=== PATIENT | female | born 1950 | race Caucasian/White ===

== ENCOUNTER 2022-07-28 18:47 | Observation (INO) ==
[2022-07-28] MEDS ORDERED: Naloxone 0.4 MG/ML INJ IVP PRN (22:36)
[2022-07-28] MEDS ORDERED: Melatonin 3 MG TABLET PO PRN (22:36)
[2022-07-28] MEDS ORDERED: Ondansetron ODT 4 MG TAB.RAPDIS SL PRN (22:36)
[2022-07-28] MEDS ORDERED: *HR* Dextrose 50 % in Water (Syg) 50 ML SYRINGE IVP PRN (22:39)
[2022-07-28] MEDS ORDERED: Dextrose Gel 15 GM/37.5 ML TUBE PO PRN ×2 (22:39)
[2022-07-28] MEDS ORDERED: D5% in Water 1,000 ML IVC PRN (22:39)
[2022-07-28] MEDS ORDERED: tiZANidine 4 MG TABLET PO PRN (23:41)
[2022-07-28] MEDS ORDERED: Ringers Solution, Lactated 1,000 ML IVC SCH (23:45)
[2022-07-29] MEDS: cefTRIAXone 1,000 MG in 0.9 % Sodium Chloride Mini Bag 100 ML IVPB SCH ×2 (00:12→09:54)
[2022-07-29] MEDS: Insulin LISPRO 300 UNITS/3 ML VIAL SUBQ SCH ×2 (00:13→05:35)
[2022-07-29] MEDS: Gabapentin 100 MG CAPSULE PO SCH ×4 (00:13→20:58)
[2022-07-29 04:35] LABS: Basophils # 0.1 K/mcL (0.0-0.2); Basophils % 1.1 %; Eosinophils # 0.2 K/mcL (0.0-0.6); Hematocrit 38.2 % (35.3-44.9); Immature Granulocytes % 0.6 % (0-4); Lymphocytes # 1.7 K/mcL (0.6-4.6); Lymphocytes % 20.1 %; Mean Corpuscular HGB Conc 31.4 g/dL (31.6-35.5); Mean Corpuscular Volume 92.3 fL (83.0-100.0); Mean Platelet Volume 10.9 fL (9.4-12.4); Monocytes # 0.9 K/mcL (0.0-1.3); Monocytes % 10.3 %; Neutrophils # 5.6 K/mcL (1.6-8.9); Platelet Count 244 K/mcL (140-400); Red Blood Count 4.14 M/mcL (3.82-4.97); Red Cell Distribution Width 15.7 % (11.5-14.5); Segmented Neutrophils % 65.9 %; White Blood Count 8.5 K/mcL (4.3-11.1)
[2022-07-29 04:43] LABS: INR 1.1; Prothrombin Time 12.5 Seconds (9.4-12.1)
[2022-07-29 04:52] LABS: Calcium 9.1 mg/dL (8.6-10.3); Magnesium 1.9 mg/dL (1.6-2.6); Phosphorous 3.6 mg/dL (2.7-4.5); Potassium 4.3 mEq/L (3.5-5.1)
[2022-07-29] MEDS: lisinopriL 10 MG TABLET PO SCH (09:54)
[2022-07-29] MEDS ORDERED: Acetaminophen 325 MG TABLET PO PRN (18:21)
[2022-07-29] MEDS: Sennosides/Docusate Sodium TABLET PO SCH (20:58)
[2022-07-29] MEDS ORDERED: Insulin NPH/REG 70/30 300 UNIT/3 ML VIAL SUBQ SCH (21:45)
[2022-07-30] MEDS: Cholecalciferol (D-3) 1,000 UNIT (25MCG) TABLET PO SCH (08:29)
[2022-07-30] MEDS: Gabapentin 100 MG CAPSULE PO SCH ×3 (08:30→19:23)
[2022-07-30] MEDS: lisinopriL 10 MG TABLET PO SCH (08:30)
[2022-07-30] MEDS: cefTRIAXone 1,000 MG in 0.9 % Sodium Chloride Mini Bag 100 ML IVPB SCH (08:30)
[2022-07-30] MEDS: Sennosides/Docusate Sodium TABLET PO SCH ×2 (08:30→19:23)
[2022-07-30] MEDS: Aspirin 81 MG TAB.CHEW PO SCH (08:30)
[2022-07-30] MEDS ORDERED: Insulin NPH/REG 70/30 300 UNIT/3 ML VIAL SUBQ SCH (09:00)
[2022-07-30 09:38] LABS: Basophils # 0.1 K/mcL (0.0-0.2); Eosinophils # 0.2 K/mcL (0.0-0.6); Eosinophils % 1.9 %; Hematocrit 39.1 % (35.3-44.9); Hemoglobin 12.6 g/dL (11.5-15.4); Immature Granulocytes % 0.7 % (0-4); Lymphocytes % 22.2 %; Mean Corpuscular HGB Conc 32.2 g/dL (31.6-35.5); Mean Corpuscular Hemoglobin 29.6 pg (28.0-33.3); Mean Corpuscular Volume 91.8 fL (83.0-100.0); Mean Platelet Volume 10.8 fL (9.4-12.4); Neutrophils # 5.6 K/mcL (1.6-8.9); Platelet Count 236 K/mcL (140-400); Red Blood Count 4.26 M/mcL (3.82-4.97); Red Cell Distribution Width 15.7 % (11.5-14.5); Segmented Neutrophils % 63.2 %; White Blood Count 8.8 K/mcL (4.3-11.1)
[2022-07-30 09:58] LABS: Calcium 9.4 mg/dL (8.6-10.3); Magnesium 1.8 mg/dL (1.6-2.6)
[2022-07-30] MEDS: Insulin NPH/REG 70/30 100 UNIT/ML (x5UNIT) SUBQ SCH (18:16)
[2022-07-31] MEDS: Aspirin 81 MG TAB.CHEW PO SCH (09:40)
[2022-07-31] MEDS: Cholecalciferol (D-3) 1,000 UNIT (25MCG) TABLET PO SCH (09:41)
[2022-07-31] MEDS: lisinopriL 10 MG TABLET PO SCH (09:41)
[2022-07-31] MEDS: Gabapentin 100 MG CAPSULE PO SCH ×3 (09:41→19:28)
[2022-07-31] MEDS: Sennosides/Docusate Sodium TABLET PO SCH ×2 (09:41→19:28)
[2022-07-31] MEDS: Insulin NPH/REG 70/30 100 UNIT/ML (x5UNIT) SUBQ SCH ×2 (09:53→18:00)
[2022-07-31] MEDS: cefTRIAXone 1,000 MG in 0.9 % Sodium Chloride Mini Bag 100 ML IVPB SCH (10:48)
[2022-07-31 10:53] LABS: Basophils # 0.1 K/mcL (0.0-0.2); Basophils % 0.9 %; Eosinophils # 0.2 K/mcL (0.0-0.6); Eosinophils % 1.7 %; Hematocrit 38.5 % (35.3-44.9); Hemoglobin 12.1 g/dL (11.5-15.4); Immature Granulocytes % 0.9 % (0-4); Lymphocytes % 21.9 %; Mean Corpuscular HGB Conc 31.4 g/dL (31.6-35.5); Mean Corpuscular Hemoglobin 29.2 pg (28.0-33.3); Mean Platelet Volume 11.2 fL (9.4-12.4); Monocytes # 0.8 K/mcL (0.0-1.3); Monocytes % 9.4 %; Neutrophils # 5.9 K/mcL (1.6-8.9); Platelet Count 260 K/mcL (140-400); Red Blood Count 4.14 M/mcL (3.82-4.97); Red Cell Distribution Width 15.6 % (11.5-14.5); Segmented Neutrophils % 65.2 %
[2022-07-31 11:12] LABS: Calcium 9.3 mg/dL (8.6-10.3); Magnesium 1.7 mg/dL (1.6-2.6); Potassium 4.5 mEq/L (3.5-5.1)
[2022-08-01] MEDS: cefTRIAXone 1,000 MG in 0.9 % Sodium Chloride Mini Bag 100 ML IVPB SCH (08:28)
[2022-08-01] MEDS: lisinopriL 10 MG TABLET PO SCH (08:28)
[2022-08-01] MEDS: Cholecalciferol (D-3) 1,000 UNIT (25MCG) TABLET PO SCH (08:28)
[2022-08-01] MEDS: Sennosides/Docusate Sodium TABLET PO SCH ×2 (08:28→20:22)
[2022-08-01] MEDS: Aspirin 81 MG TAB.CHEW PO SCH (08:28)
[2022-08-01] MEDS: Gabapentin 100 MG CAPSULE PO SCH ×3 (08:28→20:22)
[2022-08-01] MEDS: Insulin NPH/REG 70/30 100 UNIT/ML (x5UNIT) SUBQ SCH ×2 (09:08→18:17)
[2022-08-02 05:36] LABS: Basophils # 0.1 K/mcL (0.0-0.2); Basophils % 1.1 %; Eosinophils # 0.2 K/mcL (0.0-0.6); Hematocrit 39.2 % (35.3-44.9); Hemoglobin 12.3 g/dL (11.5-15.4); Immature Granulocytes % 1.1 % (0-4); Lymphocytes # 1.9 K/mcL (0.6-4.6); Lymphocytes % 18.6 %; Mean Corpuscular HGB Conc 31.4 g/dL (31.6-35.5); Mean Corpuscular Hemoglobin 29.6 pg (28.0-33.3); Mean Corpuscular Volume 94.5 fL (83.0-100.0); Mean Platelet Volume 10.9 fL (9.4-12.4); Monocytes % 10.1 %; Neutrophils # 6.9 K/mcL (1.6-8.9); Platelet Count 239 K/mcL (140-400); Red Blood Count 4.15 M/mcL (3.82-4.97); Red Cell Distribution Width 15.7 % (11.5-14.5); Segmented Neutrophils % 67.1 %; White Blood Count 10.3 K/mcL (4.3-11.1)
[2022-08-02 05:53] LABS: Calcium 9.1 mg/dL (8.6-10.3); Magnesium 1.9 mg/dL (1.6-2.6); Potassium 4.5 mEq/L (3.5-5.1)
[2022-08-02] MEDS: Sennosides/Docusate Sodium TABLET PO SCH ×2 (07:53→21:11)
[2022-08-02] MEDS: Gabapentin 100 MG CAPSULE PO SCH ×3 (07:53→21:12)
[2022-08-02] MEDS: Cholecalciferol (D-3) 1,000 UNIT (25MCG) TABLET PO SCH (07:53)
[2022-08-02] MEDS: lisinopriL 10 MG TABLET PO SCH (07:53)
[2022-08-02] MEDS: Aspirin 81 MG TAB.CHEW PO SCH (07:53)
[2022-08-02] MEDS: Insulin NPH/REG 70/30 100 UNIT/ML (x5UNIT) SUBQ SCH ×2 (07:53→17:04)
[2022-08-02] MEDS: cefTRIAXone 1,000 MG in 0.9 % Sodium Chloride Mini Bag 100 ML IVPB SCH (07:54)
[2022-08-03 04:44] LABS: Basophils # 0.1 K/mcL (0.0-0.2); Basophils % 1.1 %; Eosinophils # 0.2 K/mcL (0.0-0.6); Hematocrit 37.3 % (35.3-44.9); Hemoglobin 11.8 g/dL (11.5-15.4); Immature Granulocytes % 1.1 % (0-4); Lymphocytes # 2.4 K/mcL (0.6-4.6); Lymphocytes % 22.6 %; Mean Corpuscular HGB Conc 31.6 g/dL (31.6-35.5); Mean Corpuscular Hemoglobin 29.4 pg (28.0-33.3); Mean Platelet Volume 11.2 fL (9.4-12.4); Monocytes # 1.1 K/mcL (0.0-1.3); Neutrophils # 6.7 K/mcL (1.6-8.9); Platelet Count 234 K/mcL (140-400); Red Blood Count 4.01 M/mcL (3.82-4.97); Red Cell Distribution Width 15.7 % (11.5-14.5); Segmented Neutrophils % 63.2 %; White Blood Count 10.6 K/mcL (4.3-11.1)
[2022-08-03 05:04] LABS: Calcium 8.8 mg/dL (8.6-10.3); Magnesium 1.8 mg/dL (1.6-2.6); Potassium 4.3 mEq/L (3.5-5.1)
[2022-08-03] MEDS: Cholecalciferol (D-3) 1,000 UNIT (25MCG) TABLET PO SCH (08:05)
[2022-08-03] MEDS: cefTRIAXone 1,000 MG in 0.9 % Sodium Chloride Mini Bag 100 ML IVPB SCH (08:05)
[2022-08-03] MEDS: Gabapentin 100 MG CAPSULE PO SCH ×2 (08:05→15:32)
[2022-08-03] MEDS: Insulin NPH/REG 70/30 100 UNIT/ML (x5UNIT) SUBQ SCH ×2 (08:05→17:14)
[2022-08-03] MEDS: lisinopriL 10 MG TABLET PO SCH (08:05)
[2022-08-03] MEDS: Sennosides/Docusate Sodium TABLET PO SCH (08:05)
[2022-08-03] MEDS: Aspirin 81 MG TAB.CHEW PO SCH (08:05)
[2022-08-03 08:15] VITALS: O2SAT 93
[2022-08-03 15:02] LABS: Influenza A PCR Negative (Negative); Influenza B PCR Negative (Negative); Resp. Syncytial Virus PCR Negative (Negative)
[2022-08-03 15:09] LABS: SARS-CoV-2 by PCR (In House) Negative (Negative)
[2022-08-03 15:46] VITALS: BP 108/65; PULSE 96; TEMP 98.6
== END 2022-08-03 17:32 ==
LOC: 4WAOSI → SUATTDRO 22:25
PROVIDERS: ADMIT Internal Medicine; ATTEND Pharmacist